=== PATIENT | male | born 1960 | race Two or more races ===

== ENCOUNTER 2019-02-25 08:28 | Emergency (ER) | payer MEDICAID, OTHER ==
[~2019-02-25] VITALS: Ht 180.3 cm; Wt 93.4 kg
[2019-02-25 08:50] VITALS: BP 140/85
== END 2019-02-25 09:55 | disposition home or self-care (01) ==
LOC: ER 08:28
DX: B35.6 Tinea cruris (principal); E11.9 Type 2 diabetes mellitus without complications; I10 Essential (primary) hypertension

== ENCOUNTER 2021-11-15 20:44 | Emergency (ER) | payer MEDICAID, OTHER ==
[~2021-11-15] VITALS: Ht 180.3 cm; Wt 95.3 kg
[2021-11-15] MEDS ORDERED: ONDANSETRON ODT 4 MG TAB PO ONE (22:45)
[2021-11-15] MEDS ORDERED: MORPHINE SULFATE INJECTION 2 MG/ML SYRG IM ONE (22:45)
[2021-11-15 23:24] LABS: Basophils # (auto) 0.1 10 ^3/uL (0-0.2); Basophils % (auto) 0.9 % (0.0-2.0); Eosinophils # (auto) 0.4 10 ^3/uL (0-0.8); Eosinophils % (auto) 4.7 % (0.0-7.0); Hematocrit 42.5 % (41.0-53.0); Hemoglobin 14.4 g/dL (13.5-17.5); Lymphocytes # (auto) 1.8 10 ^3/uL (0.4-5.4); Lymphocytes % (auto) 19.7 % (10.0-50.0); Mean Corpuscular Hemoglobin 29.4 pg (28.0-32.0); Mean Corpuscular Hgb Conc. 33.9 g/dL (32.0-36.0); Mean Corpuscular Volume 86.6 fL (80.0-100.0); Monocytes # (auto) 0.4 10 ^3/uL (0-1.3); Monocytes % (auto) 4.8 % (0.0-12.0); Neutrophils # (auto) 6.3 10 ^3/uL (1.6-8.6); Neutrophils % (auto) 69.9 % (37.0-80.0); Nucleated Red Blood Cells % 0.1 %; Red Cell Distribution Width 12.9 % (11.8-14.3)
[2021-11-15] MEDS ORDERED: ONDANSETRON HCL 4 MG/2 ML VIAL IV ONE (23:30)
[2021-11-15] MEDS ORDERED: MORPHINE SULFATE INJECTION 2 MG/ML SYRG IV ONE (23:30)
[2021-11-15 23:41] LABS: Calcium 9.6 mg/dL (8.5-10.1); Potassium 4.3 mmol/L (3.5-5.1)
[2021-11-15 23:43] LABS: BUN/Creatinine Ratio 18.4
[2021-11-15 23:46] LABS: Bilirubin, Total 0.4 mg/dL (0.2-1.0); Total Protein 7.6 g/dL (6.4-8.2)
[2021-11-15 23:53] LABS: INR 1.11 (0.9-1.15); Partial Thromboplastin Time 27.1 sec (23.6-33.0)
[2021-11-15 23:57] VITALS: BP 135/50
== END 2021-11-15 23:59 | disposition short-term general hospital (02) ==
LOC: ER 20:44
DX: S06.5X0A Traumatic subdural hemorrhage without loss of consciousness, initial encounter (principal); S13.4XXA Sprain of ligaments of cervical spine, initial encounter; M54.2 Cervicalgia; V43.52XA Car driver injured in collision with other type car in traffic accident, initial encounter; Y93.89 Activity, other specified; Y92.488 Other paved roadways as the place of occurrence of the external cause; Y99.8 Other external cause status
CPT/HCPCS: 36415; 70450; 71250; 72125; 74176; 80053; 85025; 85610; 85730; 96374; 96375; 99285; J2270; J2405